=== PATIENT | male | born 1955 | race Caucasian/White ===

== ENCOUNTER → 2024-12-21 08:14 | Outpatient (REF) | payer MEDICARE, BC, SELFPAY | LOC: HWRCS 08:14 | PROVIDERS: ATTENDING PHYSICIAN Internal Medicine Cardiovascular Disease; FAMILY PHYSICIAN Family Medicine | DX: R00.2 Palpitations (principal) | CPT/HCPCS: 93306 ==

== ENCOUNTER → 2024-12-28 07:27 | Outpatient (REF) | payer MEDICARE, BC, SELFPAY | LOC: HWRCS 07:27 | PROVIDERS: ATTENDING PHYSICIAN Internal Medicine Cardiovascular Disease; FAMILY PHYSICIAN Family Medicine | DX: R07.9 Chest pain, unspecified (principal); R00.2 Palpitations | CPT/HCPCS: 78452; 93017; A9500 ==

== ENCOUNTER 2025-01-24 17:20 | Emergency (ER) | payer MEDICARE, BC, SELFPAY ==
[2025-01-24] VITALS (7 sets, daily range): BP systolic 122–169; BP diastolic 66–94; PULSE 75–77
--- NOTE | 2025-01-24 17:38 | ED.GENMED ---
ED Provider Triage
<Flaco Hamilton PA-C - Last Filed: 01/24/25 23:43>
-
Patient seen by provider in Triage?: Seen in Triage
Attestation: A medical screening examination has been initiated by a qualified medical provider. Based on the assessment performed at this time, it has been determined that an emergent medical condition may exist and the patient has been informed
that further medical evaluation and possible additional diagnostic testing may be needed.
HPI: 69-year-old male presents to the emergency department for evaluation of dizziness and heart palpitations. Palpitations have been ongoing for the past several weeks, has been seeing outpatient cardiology and completed a Holter monitor today.
States that approximate 1 hour prior to arrival he sat up from a seated position and became disoriented and lightheaded. Symptoms have since improved. Continues to have palpitations right now. No chest pain or shortness of breath
GENERAL: Alert , in no apparent distress
EYE: No visual abnormalities.
NECK: Trachea midline
ENT: No visible abnormalities.
LUNGS: No acute respiratory distress
NEUROLOGICAL: Alert and oriented
SKIN: Skin intact. No visible changes.
MUSCULOSKELETAL: Moving extremities normally
PSYCH: Normal and appropriate interaction.
This is a medical evaluation conducted in person to initiate diagnostic evaluation and provide initial therapeutics. Please see further documentation by the treating clinician.
History of Present Illness
<Flaco Hamilton PA-C - Last Filed: 01/24/25 23:43>
General
Chief Complaint: Dizziness
Time Seen by Provider: 01/24/25 20:13
<Griffin Gillespie MD - Last Filed: 01/24/25 21:15>
General
Source: patient, records and spouse
Exam Limitations: none
Nursing documentation reviewed up to this point in time: agreed with
History of Present Illness
History of Present Illness:
69-year-old male with a past medical history of JAVY on CPAP, hyperlipidemia, BPH who presents to the emergency room with his for evaluation after an episode of lightheadedness; episode today occurred in the setting of recent issues with
palpitations. Patient reports that for the past few weeks he has been dealing with palpitations and has been following with cardiology as an outpatient (Dr. Agarwal); he says that he had an echocardiogram and a stress test that he was told were
reassuring. He completed a child monitor yesterday, turned in today but has not received results on this. He says that he was having palpitations intermittently all afternoon. He says that at around 4 PM he stood up from the couch and felt very
lightheaded as if he might pass out. He says that this lasted for about 10 to 15 seconds. He says he did have palpitations but no worse than they had been throughout the afternoon. He says he had some mild soreness in his left shoulder that he
thought was a muscle pain also transient and resolved. He did not have any chest pain or shortness of breath. He did not actually pass out. He says he has never had similar symptoms in the past and so he came to the ER to be evaluated. Currently
is asymptomatic aside from some mild palpitations which have been ongoing as described above.
Past History
<Flaco Hamilton PA-C - Last Filed: 01/24/25 23:43>
Past History
ED Past Medical History: Other (Hyperlipidemia, BPH)
Social History
Tobacco: Non-smoker
Alcohol: Occasional
Family History
Family History: Other (Father had an VT at 42 and his grandfather had VT at 48)
Review of Systems
<Griffin Gillespie MD - Last Filed: 01/24/25 21:15>
Review of Systems
All Other Systems: ROS reviewed and negative except as documented in HPI and ROS
Constitutional: Denies fever
Respiratory: Denies trouble breathing
Cardiac: Reports palpitations; Denies chest pain, diaphoresis or syncope
ABD/GI: Denies abdominal pain, nausea or vomiting
: Denies flank pain
Musculoskeletal: Reports joint pain (Shoulder pain); Denies neck pain or back pain
Neurological: Reports dizzy; Denies headache
Phy Exam
<Griffin Gillespie MD - Last Filed: 01/24/25 21:15>
Physical Exam
Physical Exam:
General: Awake, alert, oriented x3; no acute distress
Head: Normocephalic, atraumatic
Eyes: Conjunctiva normal, EOMI, pupils equal round and reactive to light bilaterally
Throat: Airway intact, handling secretions
Neck: Trachea midline, supple without meningismus
Lungs: Clear to auscultation bilaterally, no wheezing, rales, rhonchi
Heart: Regular rate and rhythm, no murmurs, gallops, or rubs
Abd: Soft, non distended, nontender
Neuro: No gross deficits
Skin: no rash
Extremities: No edema in extremities, equal pulses in all extremities
Scores
<Griffin Gillespie MD - Last Filed: 01/24/25 21:15>
Heart Failure Risk
Heart Failure Risk Score: Not Applicable
Heart Score for Chest Pain Patients
STEMI patient?: Not applicable
Withdrawal Assessment of Alcohol
Withdrawal Assessment Completed?: Not applicable
Course
<Flaco Hamilton PA-C - Last Filed: 01/24/25 23:43>
Orders/Labs/Results
Orders:
Orders
01/24/25 17:21
Electrocardiogram (*1) Urgent
Reason for Study: Palpitations
EKG- Treatment ONCE
01/24/25 17:45
Complete Blood Count/With Diff Urgent
Comprehensive Metabolic Panel Urgent
01/24/25 20:15
Add On- LAB Urgent
Tests Added?: troponin
01/24/25 20:34
Troponin I Urgent
Abnormal Lab Results
01/24/25
17:45
MCH 31.4 H pg
(27.0-31.0)
MPV 11.1 H fL
(7.4-10.4)
Absolute Monos (auto) 0.9 H 10^3/uL
(0.1-0.6)
Monocytes % 9.7 H %
(1.7-9.3)
Carbon Dioxide 21 L mmol/L
(22-30)
BUN 23 H mg/dl
(9-20)
01/24/25 17:45
01/24/25 17:45
Vital Signs
Initial and Last Documented VS:
Initial Vital Signs
Temp Pulse Resp BP Pulse Ox
97.7 F 68 18 169/94 99
01/24/25 17:31 01/24/25 17:31 01/24/25 17:31 01/24/25 17:31 01/24/25 17:31
Last Documented Vital Signs
Temp Pulse Resp BP Pulse Ox
97.7 F 68 17 122/66 95
01/24/25 17:31 01/24/25 21:15 01/24/25 21:15 01/24/25 21:00 01/24/25 21:15
<Griffin Gillespie MD - Last Filed: 01/24/25 21:15>
Orders/Labs/Results
Orders:
Orders
01/24/25 17:21
Electrocardiogram (*1) Urgent
Reason for Study: Palpitations
EKG- Treatment ONCE
01/24/25 17:45
Complete Blood Count/With Diff Urgent
Comprehensive Metabolic Panel Urgent
01/24/25 20:15
Add On- LAB Urgent
Tests Added?: troponin
01/24/25 20:34
Troponin I Urgent
Abnormal Lab Results
01/24/25
17:45
MCH 31.4 H pg
(27.0-31.0)
MPV 11.1 H fL
(7.4-10.4)
Absolute Monos (auto) 0.9 H 10^3/uL
(0.1-0.6)
Monocytes % 9.7 H %
(1.7-9.3)
Carbon Dioxide 21 L mmol/L
(22-30)
BUN 23 H mg/dl
(9-20)
01/24/25 17:45
01/24/25 17:45
Vital Signs
Initial and Last Documented VS:
Initial Vital Signs
Temp Pulse Resp BP Pulse Ox
97.7 F 68 18 169/94 99
01/24/25 17:31 01/24/25 17:31 01/24/25 17:31 01/24/25 17:31 01/24/25 17:31
Last Documented Vital Signs
Temp Pulse Resp BP Pulse Ox
97.7 F 68 17 122/66 95
01/24/25 17:31 01/24/25 21:15 01/24/25 21:15 01/24/25 21:00 01/24/25 21:15
<Griffin Gillespie MD - Last Filed: 01/24/25 21:15>
MDM/Problems Addressed
Differential Diagnosis Includes:
Palpitations: PACs, PVCs, atrial fibrillation/flutter, anxiety
Lightheadedness: Arrhythmia, orthostasis, vasovagal, anemia, dehydration
MDM/Problems Addressed:
69-year-old male presents for evaluation after an episode of lightheadedness; episode today occurred when he went from sitting to standing lasted for about 10 to 15 seconds; only associated symptom was palpitations which have been ongoing for weeks
and for which she is in the midst of outpatient workup. He also had some transient left shoulder pain. No chest pain. Feels well here. Hypertensive in triage normalized by my assessment. Rest of vitals normal. Physical exam as above. His EKG
shows sinus rhythm with occasional PVCs and he has had occasional PVCs on child monitor; suspect this is the likely etiology of his palpitations. He had lab work sent in triage including a CBC and a CMP; CMP was significant for mildly elevated
BUN suggesting some degree of dehydration. I suspect that this episode today was some orthostatic hypotension possibly related to mild dehydration. Will send a troponin and an abundance of caution given his report of transient shoulder pain.
Reassess after the above.
Patient's troponin is undetectable, drawn 4 hours after initial episode this is sufficient to rule out acute VT especially in the absence of any chest pain or prolonged symptoms and with low pretest probability given apparently normal recent stress
test. Patient has been stable on the monitor well-appearing on reassessment. Stable for discharge can follow-up with cardiology and PCP as an outpatient. He feels comfortable with this plan. All questions answered.
<Griffin Gillespie MD - Last Filed: 01/24/25 21:15>
*Pulse Oximetry
Patient hypoxic: no
*EKG
Interpreted by ED Provider?: Yes
Heart Rate: 72
Rate: normal
Rhythm: sinus and PVC's
Interval: normal interval
QRS Pattern: normal QRS
Ischemia: no ischemia
*Critical Care Note
Total Time (30-74mins, 75-104mins- exclusive of procedures): Not Applicable
Data Reviewed
Review of Other/Old Records Reveals: Labs and Records
Source: patient, records and spouse
ED Attending Note
<Flaco Hamilton PA-C - Last Filed: 01/24/25 23:43>
-
Portions of this chart may have been created with voice recognition software.� Occasional wrong word or��sound alike� substitutions may have occurred due to the inherent limitations of voice recognition software.
Discharge Plan
Departure
Patient Disposition: Home (Routine Discharge)
Date of Disposition: 01/24/25
Time of Disposition: 21:28
Patient with high blood pressure during this ER visit?: Yes
Discharge Problem:
Lightheadedness, Symptomatic PVCs
Instructions: Ventricular premature beats, Dizziness, Nonvertigo, (DC)
Prescriptions:
No Action
finasteride 5 mg Tablet
5 mg PO HS
rosuvastatin 10 mg Tablet
10 mg PO HS
tadalafil 5 mg Tablet
5 mg PO HS
Referrals:
Catarino Agarwal MD [Active] - Call in 1-3 days for appt
Activity Restrictions/Additional Instructions:
Thank you for visiting the Emergency Department at [facility].
1. Please schedule a follow up appointment as directed. Call first thing tomorrow morning to make an appointment.
2. If indicated, please take your medications as instructed and indicated on discharge paperwork.
3. If any of your symptoms do not improve, or persist, or become more severe within 6-12 hours, please return to the emergency department for further care.
4. Please return to the emergency department if you develop a headache, neck pain/stiffness, fever greater than 100.4F, chest pain, shortness of breath, persistent nausea, vomiting, slurred speech, difficulty walking, numbness/tingling, weakness,
signs of infection or any other symptoms that are worrisome to you.
Please call [phone] if you have any questions.
Interventions
Interventions:
*Risk Screen - Suicide Last Done: 01/24/25 20:56
*General Assessment Last Done: 01/24/25 20:56
*Neglect/Abuse Screening Last Done: 01/24/25 20:56
ED- Fall Risk Assessment Last Done: 01/24/25 21:38
*ED COVID-19 Vaccine History Last Done: 01/24/25 17:31
*Nursing Disposition Last Done: 01/24/25 21:38
ED- Neurological Assessment Last Done: 01/24/25 20:55
ED- Cardiac Assessment Last Done: 01/24/25 20:55
Discharge Date and Time
Discharge Date/Time: 01/24/25 21:40
Print Language: ANDORRAN
[2025-01-24 18:06] LABS: % Basophils 0.3 % (0-2); % Eosinophils 1.3 % (0-6); % Immature Granulocytes 0.2 % (0-0.5); % Lymphocytes 22.2 % (20.5-51.1); % Monocytes 9.7 % (1.7-9.3); % Neutrophils 66.3 % (42.2-75.2); Absolute Eosinophils 0.1 10^3/uL (0-0.7); Absolute Lymphocytes 2.1 10^3/uL (1.2-3.4); Absolute Monocytes 0.9 10^3/uL (0.1-0.6); Absolute Neutrophils 6.3 10^3/uL (1.4-6.5); Hematocrit 46.9 % (39.0-52.0); Hemoglobin 15.7 g/dL (13.0-18.0); Mean Corp Hgb Conc. 33.5 g/dL (33.0-37.0); Mean Corpuscular Hgb 31.4 pg (27.0-31.0); Mean Corpuscular Volume 93.8 fL (80.0-94.0); Mean Platelet Volume 11.1 fL (7.4-10.4); Nucleated Red Blood Cells % 0 % (-); Platelet Count 229 10^3/uL (130-400); Red Cell Dist. Width 11.7 % (11.5-14.5); White Blood Cell Count 9.5 10^3/uL (4.8-10.8)
[2025-01-24 18:22] LABS: ALT (SGPT) 33 U/L (0-50); AST (SGOT) 29 U/L (17-59); Albumin 4.8 g/dl (3.5-5.0); Alkaline Phosphatase 52 U/L (38-126); Blood Urea Nitrogen 23 mg/dl (9-20); Calcium 9.3 mg/dl (8.4-10.2); Carbon Dioxide 21 mmol/L (22-30); Chloride 104 mmol/L (98-107); Glucose 90 mg/dl (70-99); Potassium 4.5 mmol/L (3.5-5.1); Sodium 137 mmol/L (135-145); Total Bilirubin 0.9 mg/dl (0.2-1.3); Total Protein 7.3 g/dl (6.3-8.2); eGFR > 60.00
[2025-01-24 21:12] LABS: Troponin I < 0.012 ng/ml
== END 2025-01-24 21:40 | disposition home or self-care (01) ==
LOC: EMR 17:20
PROVIDERS: Physician Assistant; EMERGENCY PHYSICIAN Emergency Medicine; FAMILY PHYSICIAN Family Medicine
DX: I49.3 Ventricular premature depolarization (principal); R42 Dizziness and giddiness; E78.49 Other hyperlipidemia; G47.33 Obstructive sleep apnea (adult) (pediatric); N40.0 Benign prostatic hyperplasia without lower urinary tract symptoms
CPT/HCPCS: 99284; 80053; 84484; 85025; 93005